=== PATIENT | male | born 1955 | race Caucasian/White ===

== ENCOUNTER → 2019-09-28 13:15 | Outpatient (CLI) | payer OTHER, MEDICAID, SELFPAY ==
--- NOTE | 2019-09-28 | DI.RAD.S_ITS ---
PROCEDURE: XR KNEE LT 3V INDICATIONS: ACUTE KNEE PAIN;UNSPECIFIED LATERALITY TECHNIQUE: 3 views of the knee were acquired. COMPARISON: None. FINDINGS: Bones: No fractures or dislocations. No suspicious bony lesions. Soft tissues: No joint effusion. No suspicious soft tissue calcifications. IMPRESSION: No trauma found, source of current acute symptoms is not seen. There is a slight degree of medial compartment degenerative osteoarthritic change and also at the lateral facet of the patellofemoral joint but these findings would generally produce persistent tenderness. Dictated by: Rj Ramos M.D. on 09/28/2019 at 14:41 Approved by: Rj Ramos M.D. on 09/28/2019 at 14:42
--- NOTE | 2019-09-28 | DI.RAD.S_ITS ---
PROCEDURE: XR KNEE RT 3V INDICATIONS: ACUTE KNEE PAIN;UNSPECIFIED LATERALITY TECHNIQUE: 3 views of the knee were acquired. COMPARISON: [facility], CR, XR KNEE LT 3V, 09/28/2019, 13:24. FINDINGS: Bones: No fractures or dislocations. No suspicious bony lesions. There is mild medial compartment joint space narrowing and also lateral facet patellofemoral joint space narrowing virtually equivalent to that seen at the left knee same day. Soft tissues: No joint effusion. No suspicious soft tissue calcifications. IMPRESSION: Symmetric degenerative osteoarthritic joint space narrowing, mild, at the medial compartment and lateral facet of the patellofemoral joint. Dictated by: Rj Ramos M.D. on 09/28/2019 at 14:42 Approved by: Rj Ramos M.D. on 09/28/2019 at 14:45
== END ==
PROVIDERS: PCP Family Medicine; Visit Provider Family Medicine
DX: M25.561 Pain in right knee (principal); M25.562 Pain in left knee
CPT/HCPCS: 73562

== ENCOUNTER → 2021-04-21 12:59 | Outpatient (CLI) | payer OTHER, MEDICAID, SELFPAY ==
[2021-04-21 20:12] LABS: Add Manual Diff / Slide Review NO; Basophils Absolute Auto 0 /uL (0-100); Eosinophils Absolute Auto 100 /uL (0-450); Eosinophils Percent Auto 1.2 % (2-4); Hematocrit 41.3 % (41-53); Hemoglobin 13.9 g/dL (13.5-17.5); Lymphocytes Absolute Auto 1500 /uL (1100-4500); Lymphocytes Percent Auto 34.3 % (25-40); Mean Corpuscular HGB Conc 33.6 % (30-36); Mean Corpuscular Hemoglobin 31.9 PG (26-34); Mean Corpuscular Volume 94.8 fL (80-100); Monocytes Absolute Auto 500 /uL (0-900); Monocytes Percent Auto 12.3 % (3-14); Neutrophils Absolute Auto 2200 /uL (1500-7000); Neutrophils Percent Auto 51.2 % (50-75); Platelet Count 170 X10^3/uL (150-400); Red Blood Cell Count 4.36 X10^6/uL (4.5-5.9); Red Cell Distribution Width 12.5 % (11.6-14.8); White Blood Cell Count 4.4 X10^3/uL (4.5-11.0)
== END ==
PROVIDERS: PCP Family Medicine; Visit Provider Family Medicine
DX: I10 Essential (primary) hypertension (principal)
CPT/HCPCS: 85025

== ENCOUNTER → 2021-05-29 07:53 | Outpatient (CLI) | payer OTHER, MEDICAID, SELFPAY ==
[2021-05-29 20:32] LABS: COVID19 - ORCAS (NP or Nasal) Negative (Negative)
== END ==
PROVIDERS: PCP Family Medicine; Visit Provider Family Medicine
DX: Z20.822 Contact with and (suspected) exposure to COVID-19 (principal)
CPT/HCPCS: C9803; U0003

== ENCOUNTER → 2022-03-28 14:29 | Outpatient (CLI) | payer MEDICARE, OTHER, SELFPAY ==
[2022-03-28 20:45] LABS: Vitamin D 25 Hydroxy (D3) 71.9 ng/mL (30.0-100.0)
== END ==
PROVIDERS: PCP Family Medicine; Visit Provider Family Medicine
DX: E55.9 Vitamin D deficiency, unspecified (principal)
CPT/HCPCS: 82306

== ENCOUNTER → 2023-08-06 11:22 | Outpatient (CLI) | payer MEDICARE, OTHER, SELFPAY ==
[2023-08-06 19:16] LABS: Alanine Aminotransferase 20 IU/L (<50); Albumin 4.2 g/dL (3.5-5.0); Albumin Globulin Ratio 1.3 (1.0-2.8); Alkaline Phosphatase 82 U/L (38-126); Aspartate Aminotransferase 28 IU/L (17-59); BUN Creatinine Ratio 16.7 (6-22); Bilirubin Total 0.9 mg/dL (0.2-1.3); Blood Urea Nitrogen 12 mg/dL (9-20); Calcium 9.9 mg/dL (8.4-10.2); Carbon Dioxide 28 mmol/L (22-32); Chloride 102 mmol/L (98-107); Cholesterol 216 mg/dL (140-199); Estimated Glomerular Filt Rate > 60 mL/min (>60); Globulin 3.2 g/dL (1.7-4.1); Glucose 99 mg/dL (80-110); HDL Cholesterol 76 mg/dL (40-60); HEMOLYSIS < 15 (0-50); LDL Cholesterol Calculated 120 mg/dL (<100); Potassium 4.1 mmol/L (3.4-5.1); Sodium 135 mmol/L (137-145); Total Protein 7.4 g/dL (6.3-8.2); Triglycerides 99 mg/dL (35-150)
[2023-08-06 19:47] LABS: Prostate Specific Antigen Scrn 1.94 ng/mL (0.1-4.0)
== END ==
PROVIDERS: PCP Physician Assistant; Visit Provider Physician Assistant
DX: Z12.5 Encounter for screening for malignant neoplasm of prostate (principal); Z13.6 Encounter for screening for cardiovascular disorders; I10 Essential (primary) hypertension
CPT/HCPCS: 80053; 80061; G0103

== ENCOUNTER → 2025-07-20 12:21 | Outpatient (CLI) | payer MEDICARE, OTHER, MEDICAID, SELFPAY ==
--- NOTE | 2025-07-20 12:22 | DI.US.S_ITS ---
PROCEDURE: US SCROTUM
== END ==
LOC: US 12:22
PROVIDERS: PCP Physician Assistant; Referring Provider Physician Assistant; Visit Provider Physician Assistant
DX: N50.811 Right testicular pain (principal); N50.89 Other specified disorders of the male genital organs; E78.00 Pure hypercholesterolemia, unspecified; I10 Essential (primary) hypertension; Z11.59 Encounter for screening for other viral diseases; Z12.5 Encounter for screening for malignant neoplasm of prostate; Z13.6 Encounter for screening for cardiovascular disorders
CPT/HCPCS: 36415; 76870; 80053; 80061; 81001; 85025; 86803; 93975; G0103

== ENCOUNTER → 2025-08-02 14:07 | Outpatient (CLI) | payer MEDICARE, OTHER, MEDICAID, SELFPAY ==
[2025-08-02 15:28] LABS: Hemoglobin A1C% w Est Avg Glu 5.1 % (4.0-6.0)
[2025-08-02 16:04] LABS: HCG Quantitative /Beta subunit < 2.39 mIU/mL (<2.40)
== END ==
PROVIDERS: PCP Physician Assistant; Referring Provider Urology; Visit Provider Urology
DX: N50.89 Other specified disorders of the male genital organs (principal); R73.9 Hyperglycemia, unspecified
CPT/HCPCS: 36415; 82105; 83036; 83615; 84702

== ENCOUNTER → 2025-08-04 10:26 | Outpatient (CLI) | payer MEDICARE, OTHER, MEDICAID, SELFPAY ==
--- NOTE | 2025-08-04 10:31 | DI.RAD.S_ITS ---
PROCEDURE: XR CHEST 2V INDICATIONS: 69 y/o M w/ concerning testicular mass, eval for mets TECHNIQUE: 2 views of the chest were acquired. COMPARISON: None. FINDINGS: Surgical changes and devices: None. Lungs and pleura: Lungs are clear. No pleural effusions or pneumothorax. Mediastinum: Mediastinal contours are normal. Heart size is normal. Bones and chest wall: No suspicious bony abnormalities. Soft tissues appear unremarkable. IMPRESSION: No acute cardiopulmonary pathology. Dictated by: Tommy Mayes M.D. on 08/04/2025 at 11:58 Approved by: Tommy Mayes M.D. on 08/04/2025 at 11:58
--- NOTE | 2025-08-04 10:31 | DI.CT.S_ITS ---
PROCEDURE: CT ABDOMEN PELVIS W CON INDICATIONS: concerning testicular mass, eval for mets TECHNIQUE: After the administration of intravenous contrast, axial sections acquired from the lung bases to the pubic symphysis. Coronal and sagittal reformats were performed. For radiation dose reduction, the following was used: automated exposure control, adjustment of mA and/or kV according to patient size. COMPARISON: [facility], , US SCROTUM, 07/20/2025, 13:18. FINDINGS: Image quality: Diagnostic Lower chest: Lower chest is unremarkable. Normal heart size. Liver: Hepatic cysts are present. Subcentimeter lesions are present, too small to characterize usually also cysts. Gallbladder and biliary system: Unremarkable, nondilated Pancreas: Suspect small duodenal diverticulum is seen adjacent to the ampulla. This appears separate from the CBD. Spleen: Nonenlarged Adrenals: No discrete nodules Kidneys: No solid renal mass or hydronephrosis. Subcentimeter lesions are seen, which are too small to characterize, usually cysts Vessels and lymph nodes: The main portal vein is patent. No abdominal aneurysm. No enlarged lymph nodes by size criteria. Bowel and peritoneum: No bowel obstruction. Moderate to large colonic fecal loading, including a rectal stool ball. Nondilated appendix. No drainable abscess or ascites. Body wall: Unremarkable Pelvis: Under distended urinary bladder. Heterogeneous enlarged prostate, not well assessed on CT. Calcified right scrotal lesion, partially seen, better assessed on ultrasound Bones: No aggressive appearing osseous abnormality. There are degenerative changes. IMPRESSION: No lymphadenopathy by size criteria in the abdomen/pelvis. No definite metastases seen. Many small liver lesions are present, too small to characterize, probably cysts. If there is high clinical concern, abdominal MRI could be used for confirmation. Partially seen right scrotal extratesticular calcified lesion is better assessed on ultrasound. Other findings above. Dictated by: Mor Monaco M.D. on 08/04/2025 at 11:16 Approved by: Mor Monaco M.D. on 08/04/2025 at 11:21
== END ==
PROVIDERS: PCP Physician Assistant; Referring Provider Physician Assistant; Visit Provider Urology
DX: N50.89 Other specified disorders of the male genital organs (principal); N40.0 Benign prostatic hyperplasia without lower urinary tract symptoms; K76.89 Other specified diseases of liver
CPT/HCPCS: 71046; 74177; Q9967

== ENCOUNTER 2025-08-24 07:06 | Day surgery (SDC) | payer MEDICARE, OTHER, MEDICAID, SELFPAY ==
[2025-08-19 13:35] VITALS: BMI 20.5
--- NOTE | 2025-08-24 | PATH_ITS ---
[facility] Accession Number: [id number] No. of containers..01 Tissue . 01 Material submitted: . PARATESTICULAR - RIGHT PARATESTICULAR MASS . 01 Diagnosis: RIGHT PARATESTICULAR MASS, RIGHT PARTITIAL EPIDIDYMECTOMY: Granulomatous inflammation with necrosis, see comment. Background unremarkable epididymal tissue. Negative for malignancy. [facility] [place] [facility] [place]/07/2025 1638 Local . 01 Comment: Sections show epididymal tissue with an adjacent collection of granulomatous inflammation with necrosis and sperm, most consistent with a sperm granuloma. Special stains for AFB and GMS are negative for acid-fast bacilli and fungal organisms, respectively. There is no evidence of malignancy. . Immunohistochemistry is performed on block A1 with the following results: CD68: Positive. Oct 3/4: Negative. CD30: Negative. CD117: Negative. CK LUIZ: Negative. These results support the above interpretation. . - Technical Note: The immunohistochemical and/or special stains reported were performed with appropriate controls at [facility] ([address], [facility] [address]). This test was developed and performance characteristics validated by [facility]. It has not been cleared or approved by the Food and Drug Administration. . 01 Electronically signed: . Clarisse Suggs DO, Pathologist NPI- [id number] . 01 Gross description: . Received in formalin with two patient identifiers and paratesticular mass R, is a 2.1 x 1.8 x 1.2 cm partailly encapsulated and focally cauterized portion of soft tissue. The outer surface is inked blue. Sectioning reveals a 1.8 x 1.0 x 1.0 cm cystic nodule containing chalky material and an adjacent tubular structure. Biomedical Engineering Professor sections are submitted in cassette A1. ([id number]) /JUWAN 08/27/2025 0438 Local . 01 Pathologist provided ICD-10: N50.89 . 01 CPT . 375189, 707264, B16024, V26077, [id number] Specimen Comment: A courtesy copy of this report has been sent to [facility] Performed at: [address] [address], [place], [place] [id number] MD Earl Leal MD Phone: [phone]
[2025-08-24 07:36] VITALS: BP 157/103; PULSE 90; RESP 16; TEMP 36.9; O2SAT 99
[2025-08-24] MEDS: LACTATED RINGERS 1,000 ML 21 ML IV (08:03)
[2025-08-24] MEDS: MELOXICAM 7.5 MG TABLET PO (08:03)
[2025-08-24] MEDS: ACETAMINOPHEN 325 MG TABLET 650 MG PO (08:03)
--- NOTE | 2025-08-24 08:12 | PM.PREOP ---
Pre-operative Note COVID-19 COVID-19 status: Not tested Interval Note History & Physical reviewed/Exam performed by Physician: Yes Changes to H&P: No
--- NOTE | 2025-08-24 08:47 | SUR.OPER ---
Supine on padded OR bed, head on pillow, arms secured on padded arm boards at <90 degrees abduction, legs uncrossed, safety belt at thigh, tape over blanket over lower legs.
[2025-08-24] MEDS: LIDOCAINE 1% 20 ML INJ (08:54)
[2025-08-24] MEDS: BACITRACIN OINT 0.9 GM PCKT 2 APPLIC TOP (09:31)
--- NOTE | 2025-08-24 09:42 | P.OP_ITS ---
Operative Date/Time/Diagnoses Date of procedure: 08/24/25 Time of procedure: 08:45 Pre-op diagnosis: Scrotal mass Post-op diagnosis: other (Right para-testicular mass) Procedure & Clinicians Procedure: Scrotal exploration Right partial epididymectomy Same procedure(s) as scheduled: Yes Indications: 69 y/o M noted to have a 1.5cm mass on the inferior aspect of his right testicle (difficult to appreciate if it is arising from his lower pole of his right testicle or separate) in the setting of concern for neoplasm on his scrotal US. Discussed that his serum tumor markers, CXR and CT Abd/Pel were all unremarkable. Discussed that I would ultimately recommend surgical excision following these tests. Discussed that this could be a simple surgical excision of this mass, a partial right orchiectomy or a right radical orchiectomy. Discussed that upon review of all of his imaging and physical exam, I would prefer a scrotal incision with plan for excision of right scrotal mass with possible right radical orchiectomy through an inguinal incision Discussed risks of the procedure to include but not limited to pain, bleeding, infection, infertility, damage to right spermatic cord leading to testicular atrophy and/or loss, spermatocele formation, poor cosmesis, chronic pain, hydrocele formation. Surgeon: Blas Robertson Assisted?: No Anesthesia Type: General Operative Notes Findings: Right paratesticular mass appearing to arise from the epididymis Closure Type: primary Specimen(s): other (right paratesticular mass) Applied: none Estimated Blood Loss (mL): 5 Blood products transfused: none Procedure in detail: Patient was identified in the preoperative holding area and consent confirmed. He was then brought to the operating room and placed supine on the operating room table where general anesthesia was induced. All bony prominences were then properly padded and he was prepped and draped in the standard sterile fashion. A surgical timeout was conducted and all members of the operating team were in ag reement. A 5cm transverse incision was marked on the right hemiscrotum using a marking pen. This was then incised using a 15 blade. The dissection was then carried down through the subcutaneous tissue and dartos fascia using bovie electrocautery. The right testicle was then delivered through the incision and onto the operative field. The right tunica vaginalis was then sharply incised and the right testicle and paratesticular mass were inspected. The mass was noted to arise from the right epididymis and be separate from the testicle. Careful dissection using a combination of bovie electrocautery and sharp dissection was taken to free the mass from the rest of the epididymis. This was then passed off the operative field as right paratesticular mass. Throughout the entire procedure, care was taken to avoid the right testicle and spermatic cord, which were both preserved at case end. The tunica vaginalis was then reapproximated to the edges of the testicle for hemostasis. The scrotum was then inspected for hemostasis, which was noted to be excellent. A dano drain was then brought out the inferior most portion of his right hemiscrotum and secured to the skin using a 3-0 Nylon stitch. The right testicle was placed back into the right hemiscrotum in correct anatomic position and without twisting of the spermatic cord. The incision was then closed in two separate layers. Dartos was reapproximated using 3-0 Vicryl in a running fashion. The skin edges were then reapproximated using 3-0 Chromic in a running horizontal mattress fashion. Bacitracin was then applied to the incision. A total of 20cc of 1:1 mixture of 1% Lidocaine plain and 0.5% Marcaine plain was used for incision and cord block anesthetic. Fluff gauze and scrotal support was then placed over the incision. Anesthesia was reversed, he was extubated in the OR and transferred to the PACU in stable condition for recovery. Complications: none Post-operative Condition: stable Disposition: PACU Plan for aftercare: Discharge home from PACU.
[2025-08-24 09:45] VITALS: BP 156/82; PULSE 72; RESP 12; TEMP 36.7; O2SAT 98
[2025-08-24 09:51] VITALS: BP 144/85; PULSE 80; RESP 12; TEMP 36.7; O2SAT 99
[2025-08-24 09:57] VITALS: BP 144/86; PULSE 73; RESP 20; TEMP 36.6; O2SAT 98
[2025-08-24 10:00] VITALS: BP 145/80; PULSE 72; RESP 16; O2SAT 99
[2025-08-24 10:07] VITALS: BP 142/72; PULSE 70; RESP 18; TEMP 36.6; O2SAT 97
== END 2025-08-24 10:36 | disposition home or self-care (01) ==
PROVIDERS: PCP Physician Assistant; Referring Provider Physician Assistant; Visit Provider Urology
PROC: (CPT 54512; principal; 2025-08-24 08:30)
DX: N50.89 Other specified disorders of the male genital organs (principal)
CPT/HCPCS: 54512; J0689; J1100; J2405; J2704; J3010; J7120